=== PATIENT | female | born 1970 | race American Indian/Alaskan Native ===

== ENCOUNTER 2018-09-27 10:18 | Outpatient (CLI) | payer OTHER ==
--- NOTE | 2018-09-27 11:50 | Mammography Report ---
BONE DEXA:09/27/18 10:18:00 CLINICAL: Postmenopausal.History of left breast cancer and on tamoxifen. TECHNIQUE: Two site bone DEXA performed on an Hologic scanner. FINDINGS: The average BMD of the lumbar spine L1-L4 is 0.955g/cm squared with a T-score of -1.8 and a Z-score of -1.1. The average BMD of the left hip is 1.128g/cm squared with a T-score of +0.6 and a Z-score of +0.8. IMPRESSION: 1. WHO classification: Osteopenia with increased fracture risk based on lumbar spine measurements. 2. WHO classification: Normal with average fracture risk based on left hip measurements. RECOMMENDATION: Clinical correlation and routine screening. DEFINITIONS: BMD = Bone Mineral Density T-score = BMD related to mean peak bone mass of young adult (mean expressed in Standard Deviation) Z-score = Age matched BMD expressed in SD World Health Organization (WHO) Diagnostic Criteria Normal T-score > -1 SD Osteopenia T-score between -1 and -2.4 SD Osteoporosis T-score -2.5 SD or below NOTE: BMD is not the only risk factor for fracture. One should also consider factors such as the patient's age, risk of falling, previous osteoporotic fracture, family history of osteoporotic fractures, current smoker, and low body weight. Z-scores are not calculated if >80 years of age.
--- NOTE | 2018-09-27 13:21 | Mammography Report ---
BILATERAL DIGITAL SCREENING MAMMOGRAM WITH CAD: 09/27/18 10:18:00 CLINICAL: Routine screening.Breast cancer survivor status post left partial mastectomy radiation therapy. She is on tamoxifen.. COMPARISON:None available. Her previous [facility] mammograms are none available. FINDINGS: The breasts are mostly fatty with a few scattered bilateral fibroglandular densities. The left breast is smaller than the right with benign inner postsurgical scar. Mild fat necrosis with benign calcifications at the scar. No mass, suspicious architectural distortion or suspicious calcifications. IMPRESSION: No mammographic evidence of malignancy. BI-RADS CATEGORY: 2 -- Benign RECOMMENDATION: Routine mammographic screening in one year. COMMENT: Patient follow-up letters are generated via our [employer] application.
== END 2018-09-27 10:19 | disposition home or self-care (01) ==
LOC: SPVWC 10:18
PROVIDERS: ATTEND Internal Medicine Hematology & Oncology
DX: Z12.31 Encounter for screening mammogram for malignant neoplasm of breast (principal); M85.88 Other specified disorders of bone density and structure, other site; N95.1 Menopausal and female climacteric states
CPT/HCPCS: 77067; 77080

== ENCOUNTER 2018-10-30 12:32 | Outpatient (CLI) | payer OTHER ==
--- NOTE | 2018-10-31 13:16 | Magnetic Resonance Report ---
BILATERAL BREAST MR WITHOUT AND WITH GADOLINIUM INDICATION: Personal history of breast cancer status post left partial mastectomy in 2013. She also underwent radiation therapy and neoadjuvant chemotherapy and took tamoxifen for 4 years. COMPARISONS: 09/27/2018 screening mammogram TECHNIQUE: Axial 1.0 mm T1 without, axial high-resolution 2.0 mm T2 and axial 1.0 mm dynamic vibrant high-resolution postcontrast T1 fat saturation sequences on a 1.5 [place]raine magnet. The examination was p erformed with an 8-channel dedicated [place] breast coil. Post-processing with CAD and subtraction was performed on an [employer] workstation. 19 cc of MultiHance was injected without incident for the con trast portion of the exam. Consent was obtained prior to the administration of the contrast. FINDINGS: RIGHT BREAST: Minimal background parenchymal enhancement. No mass or suspicious enhancement. No suspi cious lymph nodes. LEFT BREAST: Minimal background parenchymal enhancement. The left breast is smaller than the right wi th benign nonenhancing inner postsurgical scar. The scar measures 2.6 x 1.2 x 0.7 cm and contains blanca tral fat. No mass or suspicious enhancement. No suspicious lymph nodes. IMPRESSION: 1. Negative study status post left partial mastectomy. 2. No suspicious lymph nodes. 3. Recommend routine mammographic screening. BI-RADS 2--Benign Signer Name: Tristen Castro MD Signed: 10/31/2018 1:12 PM Workstation Name: [id number]
== END 2018-10-30 12:33 | disposition home or self-care (01) ==
LOC: SPVIMAG 12:32
PROVIDERS: ATTEND Surgery
DX: C50.912 Malignant neoplasm of unspecified site of left female breast (principal)
CPT/HCPCS: A9577; C8908; 77049

== ENCOUNTER 2020-08-21 08:02 | Outpatient (CLI) | payer MEDICAID ==
--- NOTE | 2020-08-21 14:54 | Mammography Report ---
DIGITAL SCREENING MAMMOGRAM WITH TOMOSYNTHESIS WITH CAD, 08/21/2020 CLINICAL INFORMATION / INDICATION: Screening TECHNIQUE: Digital bilateral 2D and 3D mammography with tomosynthesis was obtained in the craniocaud al and mediolateral oblique projections. Computer-Aided Detection (CAD) analysis was used for interp retation of this study. COMPARISON: 08/21/2019 FINDINGS: Breast Density: There are scattered areas of fibroglandular density. No dominant mass, suspicious calcifications, or architectural distortion in either breast. Left surgical changes with dystrophic calcification are stable. IMPRESSION: No mammographic evidence of malignancy. Follow up recommendation: Routine yearly BI-RADS Category 2: Benign. A "normal" or negative report should not discourage follow up or biopsy of a clinically significant f inding. A written summary of these findings will be mailed to the patient. The patient will be entered into a mammography reporting system which will generate a reminder letter for the patient's next appointmen t at the appropriate interval. The [employer] recommends yearly mammograms starting at age 40 and continuing as l bruno as a woman is in good health. Breast MRI is recommended for women with an approximate 20-25% or greater lifetime risk of breast cancer, including women with a strong family history of breast or ova max cancer or who have been treated for Hodgkin's disease. Signer Name: Jonathon Bustamante MD Signed: 08/21/2020 2:49 PM Workstation Name: [email or web address]
== END 2020-08-21 08:03 | disposition home or self-care (01) ==
LOC: SPVWC 08:02
PROVIDERS: ATTEND Surgery
DX: Z12.31 Encounter for screening mammogram for malignant neoplasm of breast (principal); N64.89 Other specified disorders of breast
CPT/HCPCS: 77063; 77067

== ENCOUNTER 2020-10-20 12:35 | Outpatient (CLI) | payer MEDICAID ==
--- NOTE | 2020-10-20 14:27 | Mammography Report ---
DEXA BONE DENSITY SCAN INDICATION / CLINICAL INFORMATION: OSTEOPENIA DUE TO CANCER THERAPY M85.80. 50 years Female COMPARISON: DEXA 09/27/2018. LUMBAR SPINE, L1-L4: - Bone mineral density (BMD) = 0.946 g/cm2. - T-score = -1.9 - Z-score = -1.0 Change (%) since most recent prior (if available): -0.9%. LEFT HIP, NECK : - Bone mineral density (BMD) = 0.874 g/cm2. - T-score = -0.5 - Z-score = -0.0 Change (%) since most recent prior (if available): -4.4% IMPRESSION: 1. WHO Classification: Osteopenia. Fracture Risk: Increased. 2. 10-Year Fracture Risk (FRAX) = Major Osteoporotic Not reported.% / Hip: Not reported.% FRAX generally not reported for patients with normal or osteoporotic BMD, in qxh-yizrkti-yikwhrq kashmir ents younger than age 50, or in patients undergoing pharmacotherapy BMD Reporting Guidelines (ISCD, 2015) BMD Reporting in Postmenopausal Women and in Men Age 50 and Older - T-scores are preferred. - The WHO densitometric classification is applicable. BMD Reporting in Females Prior to Menopause and in Males Younger Than Age 50 - Z-scores, not T-scores, are preferred. This is particularly important in children. - A Z-score of -2.0 or lower is defined as below the expected range for age, and a Z-score above -2.0 is within the expected range for age. - Osteoporosis cannot be diagnosed in men under age 50 on the basis of BMD alone. - The WHO diagnostic criteria may be applied to women in the menopausal transition. http://www.iscd.org/official-positions/0026-kleg-jvphdgfq-positions-adult/ Signer Name: Isai Paris MD Signed: 10/20/2020 2:23 PM Workstation Name: [id number]
== END 2020-10-20 12:36 | disposition home or self-care (01) ==
LOC: SPVWC 12:35
PROVIDERS: ATTEND Internal Medicine Hematology & Oncology
DX: M85.89 Other specified disorders of bone density and structure, multiple sites (principal); M85.80 Other specified disorders of bone density and structure, unspecified site
CPT/HCPCS: 77080